=== PATIENT | male | born 1980 | race Caucasian/White ===

== ENCOUNTER 2017-10-21 13:02 | Emergency (ER) | payer OTHER ==
[~2017-10-21] VITALS: Ht 182.9 cm; Wt 68.4 kg
[2017-10-21] MEDS ORDERED: IV NORMAL SALINE 1,000ML 1,000 ML IV SCH (13:31)
--- NOTE | 2017-10-21 13:41 | PHYS DOC ---
Past History Past Medical History: No Pertinent History Past Surgical History: No Surgical History Alcohol Use: None Drug Use: Other Social History Narrative: [facility] Adult General Chief Complaint Chief Complaint: ANXIETY/PANIC ATTACK HPI HPI 37-year-old male presents with anxiety. The patient was recently [facility] and is having difficult time adjusting to his outside life. He has a lot of concerns that piling on him together becoming overwhelming. Patient also admits to taking some sort of a recreational drug pill 3 days ago. He believes it was an upper of some kind but he is unsure. He has not taken any drugs or had any alcohol since that time. His anxiety has been worse today and he is not exactly sure why. He denies fever or chills. He denies delusions, hallucinations , suicidal or homicidal ideation. The patient does not currently see a counselor. He is not on any anxiety or depression medicines. Review of Systems Review of Systems Constitutional: Denies fever or chills [] Eyes: Denies change in visual acuity, redness, or eye pain [] HENT: Denies nasal congestion or sore throat [] Respiratory: Denies cough or shortness of breath [] Cardiovascular: No additional information not addressed in HPI [] GI: Denies abdominal pain, nausea, vomiting, bloody stools or diarrhea [] : Denies dysuria or hematuria [] Musculoskeletal: Denies back pain or joint pain [] Integument: Denies rash or skin lesions [] Neurologic: Denies headache, focal weakness or sensory changes [] Endocrine: Denies polyuria or polydipsia Psych: Anxious[] All other systems were reviewed and found to be within normal limits, except as documented in this note. Current Medications Current Medications Current Medications Medications (Trade) Dose Ordered Sig/Audrey Start Time Stop Time Status Last Admin Dose Admin Sodium Chloride 1,000 ml @ 1,000 mls/hr Q1H 10/21/17 13:31 10/21/17 14:30 UNV Allergies Allergies Allergies Coded Allergies Type Severity Reaction Last Updated Verified No Known Drug Allergies 10/21/17 No Physical Exam Physical Exam Constitutional: Well developed, well nourished, no acute distress, non-toxic appearance. [] HENT: Normocephalic, atraumatic, bilateral external ears normal, oropharynx moist, no oral exudates, nose normal. [] Eyes: PERRLA, EOMI, conjunctiva normal, no discharge. [] Neck: Normal range of motion, no tenderness, supple, no stridor. [] Cardiovascular: Tachycardia[] Lungs & Thorax: Bilateral breath sounds clear to auscultation [] Abdomen: Bowel sounds normal, soft, no tenderness, no masses, no pulsatile masses. [] Skin: Warm, dry, no erythema, no rash. [] Back: No tenderness, no CVA tenderness. [] Extremities: No tenderness, no cyanosis, no clubbing, ROM intact, no edema. [] Neurologic: Alert and oriented X 3, normal motor function, normal sensory function, no focal deficits noted. [] Psychologic: Anxious, jittery. He is appropriately answering questions.[] Current Patient Data Vital Signs Vital Signs Date Time Temp Pulse Resp B/P (MAP) Pulse Ox O2 Delivery O2 Flow Rate FiO2 10/21/17 13:05 98.2 136 20 96 Room Air EKG EKG [] Radiology/Procedures Radiology/Procedures [] Course & Med Decision Making Course & Med Decision Making Pertinent Labs and Imaging studies reviewed. (See chart for details) After 50 mg of hydroxyzine and a liter of fluid, the patient began to feel a bit better. His heart rate at rest was below 100. He requested that I prescribe him hydroxyzine for his anxiety. I will do so. I further advised the patient to seek counseling and psychiatric services as he may benefit from them as well as any further treatment with an antidepressant to assist with his adjustment. Patient was cooperative and polite. His labs were unremarkable. His UDS was positive for amphetamine/methamphetamine. No signs of urinary infection. [] Dragon Disclaimer Dragon Disclaimer This electronic medical record was generated, in whole or in part, using a voice recognition dictation system. Departure Departure: Referrals: PCP,NO (PCP) Scripts Hydroxyzine Hcl (HYDROXYZINE HCL) 25 Mg Tablet 1 TAB PO TID PRN for ANXIETY, #30 TAB Prov: COLTON PENN DO 10/21/17 COLTON PENN DO October 21, 2017 13:41
[2017-10-21] MEDS ORDERED: hydrOXYzine HCL 25 MG TABLET PO PRN (13:45)
[2017-10-21 13:50] LABS: BASO % 1 % (0-3); EOS % 0 % (0-3); HEMATOCRIT 45.8 % (39.0-53.0); HEMOGLOBIN 16.1 g/dL (13.0-17.5); LYMPH # 1.9 x10^3/uL (1.0-4.8); LYMPH % 24 % (24-48); MEAN CORPUSCULAR HEMOGLOBIN 31 pg (25-35); MEAN CORPUSCULAR HGB CONC 35 g/dL (31-37); MEAN CORPUSCULAR VOLUME 88 fL (79-100); MONO # 0.7 x10^3/uL (0.0-1.1); MONO % 9 % (0-9); NEUT # 5.3 x10^3uL (1.8-7.7); NEUT % 67 % (31-73); PLATELET COUNT 193 x10^3/uL (140-400); RED BLOOD COUNT 5.21 x10^6/uL (4.30-5.70); WHITE BLOOD COUNT 7.9 x10^3/uL (4.0-11.0)
--- NOTE | 2017-10-21 13:56 | RAD ---
EXAM: Chest, single view. HISTORY: Tachycardia. COMPARISON: None. FINDINGS: Frontal views of the chest are obtained. There is no infiltrate, effusion or pneumothorax. The heart is normal in size. There are few calcified granulomas. IMPRESSION: No acute pulmonary finding. Electronically signed by: Nata Prather MD (10/21/2017 1:53 PM) [place] [id number]
[2017-10-21 13:58] LABS: CALCIUM 9.1 mg/dL (8.5-10.1); CREATININE 1.1 mg/dL (0.7-1.3); GFR 76.2; POTASSIUM 3.7 mmol/L (3.5-5.1)
[2017-10-21] MEDS ORDERED: HYDR25TA PO (14:39)
[2017-10-21 14:41] VITALS: BP 151/107
[2017-10-21 14:58] LABS: AMPHETAMINE/METHAMPHETAMINE POS (NEG); BARBITURATES NEG (NEG); BENZODIAZEPINES NEG (NEG); CANNABINOIDS NEG (NEG); COCAINE NEG (NEG); METHADONE NEG (NEG); OPIATES NEG (NEG); PHENCYCLIDINE NEG (NEG)
[2017-10-21 15:04] LABS: BACTERIA,URINE 0 /HPF (0-FEW); BILIRUBIN,URINE NEG (NEG); CLARITY,URINE HAZY; COLOR,URINE YELLOW; GLUCOSE,URINE NEG (NEG); NITRITE,URINE NEG (NEG); RBC,URINE 0 /HPF (0-2); UROBILINOGEN,URINE 0.2 mg/dL (0.2 mg/dL); WBC,URINE RARE /HPF (0-4)
[2017-10-21 15:05] LABS: SPERM,URINE PRESENT /HPF
== END 2017-10-21 14:41 | disposition home or self-care (01) ==
LOC: ER 13:02
DX: F41.9 Anxiety disorder, unspecified (principal)
CPT/HCPCS: 36415; 71045; 80048; 80307; 81001; 85025; 99285-25; G0479; J7030

== ENCOUNTER 2017-12-05 07:21 | Emergency (ER) | payer OTHER ==
[~2017-12-05] VITALS: Ht 182.9 cm; Wt 68.2 kg
[~2017-12-05 07:21] MED LIST: HYDR25TA PO
[2017-12-05] MEDS ORDERED: HYDR50TA PO (07:50)
[2017-12-05] MEDS ORDERED: hydrOXYzine PAMOATE 25 MG CAPSULE PO ONE (08:00)
[2017-12-05 08:10] VITALS: BP 144/103
--- NOTE | 2017-12-05 10:34 | ED.ADGEN ---
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 Patient reports extreme anxiety since being released into intermediate to half way home the past several weeks. He was seen in the emergency department 10 days ago and prescribed Atarax. Patient was unable to take his medication today from his medication provider. Reports feeling panicked and anxious since being relieved from intermediate.[] Review of Systems Review of Systems ROS as per HPI [] All other systems were reviewed and found to be within normal limits, except as documented in this note. Current Medications Current Medications Current Medications Medications (Trade) Dose Ordered Sig/Audrey Start Time Stop Time Status Last Admin Dose Admin Hydroxyzine Pamoate (Vistaril) 50 mg 1X ONCE 12/05/17 08:00 12/05/17 08:01 DC 12/05/17 07:56 50 MG Allergies Allergies Allergies Coded Allergies Type Severity Reaction Last Updated Verified No Known Drug Allergies 10/21/17 No Physical Exam Physical Exam Constitutional: Well developed, well nourished, tearful, pacing. [] HENT: Normocephalic, atraumatic, bilateral external ears normal, oropharynx moist, nose normal. [] Eyes: PERRLA, EOMI, conjunctiva normal. [] Neck: Normal range of motion, no tenderness. [] Cardiovascular:Heart rate regular rhythm, no murmur [] Lungs & Thorax: Bilateral breath sounds clear to auscultation [] Abdomen: Bowel sounds normal, soft, no tenderness. [] Skin: Warm, dry, no erythema, no rash. [] Back: No tenderness. [] Extremities: No tenderness, ROM intact, no edema. [] Neurologic: Alert and oriented X 3, normal motor function, normal sensory function, no focal deficits noted. [] Psychologic: Affect, anxious. [] Current Patient Data Vital Signs Vital Signs Date Time Temp Pulse Resp B/P (MAP) Pulse Ox O2 Delivery O2 Flow Rate FiO2 12/05/17 08:10 119 18 144/103 (117) 100 Room Air 12/05/17 07:21 98.6 EKG EKG [] Radiology/Procedures Radiology/Procedures [] Course & Med Decision Making Course & Med Decision Making Pertinent Labs and Imaging studies reviewed. (See chart for details) [Patient refusing to perform a urine drug screen. Suspect methamphetamines in the patient's system. 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 Patient medically stable for discharge.] Final Impression Final Impression [#1 medical screening exam] Dragon Disclaimer Dragon Disclaimer This electronic medical record was generated, in whole or in part, using a voice recognition dictation system. COLTON AUSTIN DO Dec 05, 2017 10:34
== END 2017-12-05 08:10 | disposition home or self-care (01) ==
LOC: ER 07:21 → MERGE 07:21 → EDBD 07:21 → ER 08:10
DX: F41.9 Anxiety disorder, unspecified (principal)
CPT/HCPCS: 99284; Q0177

== ENCOUNTER 2017-12-05 10:19 | Emergency (ER) | payer OTHER ==
[~2017-12-05] VITALS: Ht 182.9 cm; Wt 68.2 kg
[~2017-12-05 10:19] MED LIST changes: +HYDR50TA PO
--- NOTE | 2017-12-05 10:31 | ED.ADGEN ---
Past History Past Medical History: Anxiety Past Surgical History: No Surgical History Alcohol Use: None Adult General Chief Complaint Chief Complaint anxiety HPI HPI Patient is a 37 year old presents with uncontrolled anxiety and medical evaluation for psychiatric placement. Patient reports extreme anxiety since being released into [facility]f to [facility] home the past several weeks. He was seen in the emergency department 10 days ago and prescribed Atarax. Patient was unable to take his medication today from his medication provider. Reports feeling panicked and anxious on August is pacing and unable to sit still. Patient was given Atarax in the emergency department and referred to the [facility] and contacted the ED with possible placement. The patient requires medical clearance prior to placement at inpatient psych facility..[] Review of Systems Review of Systems Review symptoms as per history of present illness. All other review symptoms are negative. All other systems were reviewed and found to be within normal limits, except as documented in this note. Allergies Allergies Allergies Coded Allergies Type Severity Reaction Last Updated Verified No Known Drug Allergies 10/21/17 No Physical Exam Physical Exam Constitutional: Well developed, well nourished, anxious. [] HENT: Normocephalic, atraumatic, bilateral external ears normal, oropharynx moist, nose normal. [] Eyes: PERRLA, EOMI, conjunctiva normal. [] Neck: Normal range of motion, no tenderness. [] Cardiovascular:Heart rate regular rhythm, no murmur [] Lungs & Thorax: Bilateral breath sounds clear to auscultation. [] Abdomen: Bowel sounds normal, soft, no tenderness. [] Skin: Warm, dry. [] Back: No tenderness. [] Extremities: No tenderness, no edema. [] Neurologic: Alert and oriented X 3, [] Psychologic: Affect, anxious. Pacing. [] Current Patient Data Vital Signs Vital Signs Date Time Temp Pulse Resp B/P (MAP) Pulse Ox O2 Delivery O2 Flow Rate FiO2 12/05/17 12:18 65 18 146/98 (114) 96 Room Air 12/05/17 10:39 98.4 Lab Results Laboratory Tests Test 12/05/17 10:36 White Blood Count 10.9 x10^3/uL (4.0-11.0) Red Blood Count 5.21 x10^6/uL (4.30-5.70) Hemoglobin 16.1 g/dL (13.0-17.5) Hematocrit 45.6 % (39.0-53.0) Mean Corpuscular Volume 88 fL (79-100) Mean Corpuscular Hemoglobin 31 pg (25-35) Mean Corpuscular Hemoglobin Concent 35 g/dL (31-37) Red Cell Distribution Width 13.1 % (11.5-14.5) Platelet Count 211 x10^3/uL (140-400) Neutrophils (%) (Auto) 76 % (31-73) H Lymphocytes (%) (Auto) 13 % (24-48) L Monocytes (%) (Auto) 10 % (0-9) H Eosinophils (%) (Auto) 0 % (0-3) Basophils (%) (Auto) 1 % (0-3) Neutrophils # (Auto) 8.3 x10^3uL (1.8-7.7) H Lymphocytes # (Auto) 1.4 x10^3/uL (1.0-4.8) Monocytes # (Auto) 1.1 x10^3/uL (0.0-1.1) Eosinophils # (Auto) 0.0 x10^3/uL (0.0-0.7) Basophils # (Auto) 0.1 x10^3/uL (0.0-0.2) Sodium Level 135 mmol/L (136-145) L Potassium Level 4.0 mmol/L (3.5-5.1) Chloride Level 100 mmol/L (98-107) Carbon Dioxide Level 25 mmol/L (21-32) Anion Gap 10 (6-14) Blood Urea Nitrogen 13 mg/dL (8-26) Creatinine 1.0 mg/dL (0.7-1.3) Estimated GFR (Cockcroft-Gault) 85.0 BUN/Creatinine Ratio 13 (6-20) Glucose Level 100 mg/dL (70-99) H Calcium Level 9.6 mg/dL (8.5-10.1) Total Bilirubin 1.1 mg/dL (0.2-1.0) H Aspartate Amino Transferase (AST) 19 U/L (15-37) Alanine Aminotransferase (ALT) 27 U/L (16-63) Alkaline Phosphatase 50 U/L (46-116) Total Protein 7.9 g/dL (6.4-8.2) Albumin 4.6 g/dL (3.4-5.0) Albumin/Globulin Ratio 1.4 (1.0-1.7) Ethyl Alcohol Level < 10 mg/dL (0-10) EKG EKG [] Radiology/Procedures Radiology/Procedures [] Course & Med Decision Making Course & Med Decision Making Pertinent Labs and Imaging studies reviewed. (See chart for details) [Patient declines to provide urine for medical clearance. He in superficial of the [facility]'s office who picked the patient up the emergency department. Patient medically stable for discharge] Final Impression Final Impression [1. Medical screening exam] Dragon Disclaimer Dragon Disclaimer This electronic medical record was generated, in whole or in part, using a voice recognition dictation system. COLTON AUSTIN DO Dec 05, 2017 10:31
[2017-12-05 10:51] LABS: BASO # 0.1 x10^3/uL (0.0-0.2); BASO % 1 % (0-3); EOS % 0 % (0-3); HEMATOCRIT 45.6 % (39.0-53.0); HEMOGLOBIN 16.1 g/dL (13.0-17.5); LYMPH # 1.4 x10^3/uL (1.0-4.8); LYMPH % 13 % (24-48); MEAN CORPUSCULAR HEMOGLOBIN 31 pg (25-35); MEAN CORPUSCULAR HGB CONC 35 g/dL (31-37); MEAN CORPUSCULAR VOLUME 88 fL (79-100); MONO # 1.1 x10^3/uL (0.0-1.1); MONO % 10 % (0-9); NEUT # 8.3 x10^3uL (1.8-7.7); NEUT % 76 % (31-73); PLATELET COUNT 211 x10^3/uL (140-400); RED BLOOD COUNT 5.21 x10^6/uL (4.30-5.70); RED CELL DISTRIBUTION WIDTH 13.1 % (11.5-14.5); WHITE BLOOD COUNT 10.9 x10^3/uL (4.0-11.0)
[2017-12-05 11:13] LABS: ALBUMIN 4.6 g/dL (3.4-5.0); ALBUMIN/GLOBULIN RATIO 1.4 (1.0-1.7); CALCIUM 9.6 mg/dL (8.5-10.1); TOTAL BILIRUBIN 1.1 mg/dL (0.2-1.0); TOTAL PROTEIN 7.9 g/dL (6.4-8.2)
--- NOTE | 2017-12-05 12:06 | EKG ---
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
[2017-12-05 12:18] VITALS: BP 146/98
== END 2017-12-05 14:18 | disposition home or self-care (01) ==
LOC: ER 10:19 → MERGE 10:19 → ER 14:18
DX: F41.9 Anxiety disorder, unspecified (principal)
CPT/HCPCS: 36415; 80053; 85025; 93005; 99285; G0480